=== PATIENT | female | born 1975 | race Caucasian/White ===

== ENCOUNTER 2017-11-15 06:05 | Day surgery (SDC) | payer OTHER ==
[2017-11-10 15:25] VITALS: BMI 29.2
[2017-11-15] MEDS ORDERED: LIDOCAINE HCL 2% 100 MG/5 ML DISP.SYRIN ONE (07:12)
[2017-11-15] MEDS ORDERED: PROPOFOL 20 ML ONE ×7 (07:12→09:48)
[2017-11-15] MEDS ORDERED: ONDANSETRON 4 MG/2 ML VIAL ONE ×2 (07:12→10:46)
[2017-11-15] MEDS ORDERED: GABAPENTIN 300 MG CAPSULE (FP) PO STA (07:12)
[2017-11-15] MEDS ORDERED: DEXAMETHASONE SOD PHOSPHATE 4 MG/1 ML VIAL ONE ×2 (07:12→08:39)
[2017-11-15] MEDS ORDERED: oxyCODONE HCL 10 MG SUSTAINED ACTING TABLET PO STA (07:12)
[2017-11-15] MEDS ORDERED: fentaNYL CITRATE 250 MCG/5 ML VIAL ONE (07:12)
[2017-11-15] MEDS ORDERED: MIDAZOLAM HCL 2 MG/2 ML SINGLE DOSE VIAL ONE (07:13)
[2017-11-15] MEDS ORDERED: SUCCINYLCHOLINE CHLORIDE 200 MG/10 ML VIAL ONE (07:13)
[2017-11-15] MEDS ORDERED: LIDOCAINE 1%/EPI 1:100000 (20 ML MULTI DOSE VIAL) ONE (07:13)
--- NOTE | 2017-11-15 07:17 | HP ---
History & Physical Update - History History: No Change - Physical Physical: No Change - Assessment Assessment: No Change - Plan Plan: No Change (Here today for elective repair of her cervical 5-7 disc herniation. Plan is for ACDF C5-C7. H&P is located in her paper chart ( completed by Herber Swanson MD on 11/08/17). No new complaints or medications since having her H&P.)
[2017-11-15] MEDS ORDERED: ePHEDrine SULFATE 50 MG/1 ML AMPULE ONE (08:31)
[2017-11-15] MEDS ORDERED: ceFAZolin SODIUM 1 GM VIAL ONE (08:39)
[2017-11-15] MEDS ORDERED: PHENYLEPHRINE HCL 10 MG/1 ML SINGLE DOSE VIAL ONE (08:59)
[2017-11-15] MEDS ORDERED: LIDOCAINE 1%/EPI 1:100000 (50 ML MULTI DOSE VIAL) INF ONE (08:59)
[2017-11-15] MEDS ORDERED: oxyCODONE HCL 5 MG TABLET PO PRN ×2 (09:29→10:44)
[2017-11-15] MEDS ORDERED: ONDANSETRON 4 MG/2 ML VIAL IVPUSH PRN (09:29)
[2017-11-15] MEDS ORDERED: LACTATED RINGERS SOLUTION 1,000 ML IV SCH ×2 (09:30→10:45)
--- NOTE | 2017-11-15 11:01 | OP ---
Operative Note - Note: Operative Date: 11/15/17 Pre-Operative Diagnosis: Cervical stenosis, disc herniation, radiculopathy Operation: ACDF C5/6, C6/7 Post-Operative Diagnosis: Same as Pre-op Surgeon: Neftali Paul Olive Picker: Jere Chavez Anesthesiologist/EARLY MORNING: Virgie Bonilla Anesthesia: General, Spinal Specimens Removed: C5/6, C6/7 discs Estimated Blood Loss (mls): 15 Fluid Volume Replaced (mls): 1,000 Operative Report Dictated: Yes
--- NOTE | 2017-11-15 11:02 | SURG ---
Surgery Assembler Trim Note Assembler Trim: Jere Chavez PA-C Date of Service: 11/15/17 Diagnosis: Cervical stenosis, disc herniation, radiculopathy Procedure: Anterior cervical discectomy C5/6, C6/7, fusion, instrumentation, allograft implant x2, neuromonitoring I was present for the entirety of the operative procedure. For further detail, please refer to operative report. Visit type - Case Type Case Type: Scheduled Admission - New patient This patient is new to me today: Yes Date on this admission: 11/15/17
[2017-11-15] MEDS ORDERED: HYDROmorphone HCL CARPU-JECT 1 MG/1 ML DISP.SYRIN IVPUSH PRN (11:36)
[2017-11-15] MEDS ORDERED: oxyCODONE HCL 5 MG TABLET ONE ×2 (14:48→16:00)
[2017-11-15] MEDS ORDERED: CEFAZOLIN 1 GM/D5W 1 GM/50 ML BAG ONE (14:56)
[2017-11-15] MEDS ORDERED: DEXAMETHASONE SOD PHOSPHATE 10 MG/1 ML VIAL IVPUSH ONE (15:00)
[2017-11-15] MEDS ORDERED: CEFAZOLIN 1 GM/D5W 1 GRAM/50 ML BAG IVPB SCH (15:00)
[2017-11-15] MEDS ORDERED: DEXAMETHASONE SOD PHOSPHATE 10 MG/1 ML VIAL ONE (15:21)
[2017-11-15 15:36] VITALS: TEMP 98.3
[2017-11-15 17:53] VITALS: BP 110/71; PULSE 82
--- NOTE | 2017-11-15 21:07 | OP ---
DATE OF OPERATION: 11/15/2017 PREOPERATIVE DIAGNOSIS: Cervical stenosis, C5-6, C6-7. POSTOPERATIVE DIAGNOSIS: Cervical stenosis, C5-6, C6-7. PROCEDURE PERFORMED: 1. Anterior cervical diskectomy and fusion, C5-6. 2. Anterior cervical diskectomy and fusion, C6-7. 3. Placement of instrumentation, C5-6 and C6-7. SURGEON: Neftali Paul MD STAFF SCIENTIST: JORDY Berumen ESTIMATED BLOOD LOSS: 50 mL INTRAVENOUS FLUIDS: Per Anesthesia. ANESTHESIA: General. COMPLICATIONS: None. DISPOSITION: Patient brought to the PACU in stable condition. INDICATION FOR SURGERY: The patient is a 42-year-old female who has been suffering from pain from her neck down her left arm. X-rays and MRI were completed which noted that she had a herniated disk at C5-6 and C6-7. She had gone through an exhaustive course of treatment for this, which included medications, physical therapy, as well as injections. Unfortunately, her pain continued to persist despite all this. At this point, risks, benefits, and alternatives were discussed, and the patient consented to surgery. DESCRIPTION OF PROCEDURE: Patient was brought to the operating room by the anesthesia staff. After appropriate patient identification was performed, general anesthesia was given. Appropriate anesthetic lines were placed. SCDs were placed on the patient. A shoulder roll was placed underneath her neck to extend her neck to the point that she tolerate in the preoperative holding area. A needle was taped onto her neck to [place] off the C5-6 level. An x-ray was taken to confirm this as correct. Needle was removed, and 10 mL of lidocaine with epinephrine were injected into her neck at this time. Her neck was prepped and draped in a sterile manner. At this point, timeout was completed. A 2-inch incision was made in the left side of her neck. Dissection was carried down to the platysma. The platysma was cut in line with the skin incision. Next, the interval between the sternocleidomastoid and strap muscles was developed. Next, the interval between the carotid sheath as well as the tracheoesophagus was developed. Peanuts were used to elevate it off of the prevertebral fascia. A needle was placed into the C5-6 disk. An x-ray was taken to confirm this as correct. Needle was removed, and Hancock pins were placed into the body of C5 and C7. Knife was used to incise the disk. The longus colli muscles were elevated off, and retractor blades were placed in. The microscope was brought in. At this point, using a series of pituitaries, Kerrisons, and curettes, a diskectomy was completed. The endplates were decorticated at this time. A cage filled with bone graft was placed into C5-6 and placed into C6-7. The Hancock pins were removed. A screw was placed into the body of C5. A screw was placed into the body of C6. A screw was placed into the body of C7. AP and lateral x-rays confirmed the instrumentation to be in good position. Final tightening was performed. The platysma was closed with 2-0 Vicryl suture. Skin was closed with 3-0 Monocryl suture. Dermabond was applied. Steri-Strips were applied. A sterile dressing was applied. Patient was placed supine on the OR bed, extubated in the ER, and brought to the PACU in stable condition. Panchito [id number]
--- NOTE | 2017-11-17 12:02 | PATH ---
Surgical Pathology Report Patient Name: MAYKEL SAVAGE [facility]. Rec. #: [id number] /Age/Gender: 1975 (Age: 42) / F Account: [id number] Location: [facility] Taken: 11/15/2017 Received: 11/15/2017 Reported: 11/17/2017 Physicians: Neftali Paul M.D. Specimen(s) Received C5-6, C5-7 DISC Clinical History Cervical stenosis Final Diagnosis C5-6, C5-7 DISC, DISCECTOMY: CARTILAGE WITH DEGENERATIVE CHANGES. Electronically Signed Maryellen Curry M.D. Gross Description Received in formalin labeled "C5-6, C5-7 disc," is a 2.3 x 1.5 x 0.3 cm aggregate of jean baptiste fragments of fibrocartilaginous tissue. A veterans employment representative portion is submitted in one cassette. /11/16/2017 saudi11/16/2017
== END 2017-11-15 16:30 | disposition home or self-care (01) ==
LOC: FASU 06:05
PROVIDERS: ATTEND Orthopaedic Surgery Orthopaedic Surgery of the Spine
PROC: 0RG10A0 Fusion of Cervical Vertebral Joint with Interbody Fusion Device, Anterior Approach, Anterior Column, Open Approach (ICD-10-PCS; 2017-11-15)
PROC: 0RG10K0 Fusion of Cervical Vertebral Joint with Nonautologous Tissue Substitute, Anterior Approach, Anterior Column, Open Approach (ICD-10-PCS; 2017-11-15)
PROC: 0RB30ZZ Excision of Cervical Vertebral Disc, Open Approach (ICD-10-PCS; principal; 2017-11-15 08:15)
DX: M48.02 Spinal stenosis, cervical region (principal)
CPT/HCPCS: 72050-TC-FY; 76001-TC-FY; 84703; 88304-TC; 94760; J1100